=== PATIENT | male | born 1985 | race Caucasian/White ===

== ENCOUNTER 2019-04-14 17:29 | Emergency (ER) | payer OTHER ==
[~2019-04-14] VITALS: Ht 175.3 cm; Wt 62.6 kg
[2019-04-14] MEDS ORDERED: CLEOCIN HCL150 MG PO (19:05)
[2019-04-14] MEDS ORDERED: NORCO 5-325 TA1 EACH PO (19:05)
[2019-04-14] MEDS ORDERED: NAPROSYN500 MG PO (19:05)
[2019-04-14 19:58] VITALS: BP 121/79
== END 2019-04-14 19:58 | disposition home or self-care (01) ==
LOC: M.ERS 17:29
DX: S66.325A Laceration of extensor muscle, fascia and tendon of left ring finger at wrist and hand level, initial encounter (principal); F17.210 Nicotine dependence, cigarettes, uncomplicated; W23.1XXA Caught, crushed, jammed, or pinched between stationary objects, initial encounter; Y92.89 Other specified places as the place of occurrence of the external cause; Y93.89 Activity, other specified; Y99.8 Other external cause status